=== PATIENT | female | born 1990 | race African-American/Black ===

== ENCOUNTER 2016-11-06 00:41 | Emergency (ER) | payer SELFPAY ==
--- NOTE | ~2016-11-06 | ER ---
PATIENT'S NAME: LOVELY VELASQUEZ [facility] AGE: 26 Y [address] ROOM: [place] [id number] LOCATION: ED ADMIT DATE: 11/06/2016 ER/Outpatient Report DISCHARGE DATE: 11/06/2016 FAMILY PHYSICIAN: Physician, Unknown ATTENDING PHYSICIAN: Michael Mcmahon HISTORY OF PRESENT ILLNESS: This is a 26-year-old female who presents today with a chief complaint of dental pain. She reports that it is mostly pain at her bottom front teeth and also on her right upper. She states that it has been bothering her for about 5 days now, but it was worse today. She has been taking Tylenol and ibuprofen without any improvement of pain. She reports some fever and a sore throat yesterday, but none today, no chills, has not been to a dentist in many, many years she reports. No difficulty swallowing. No neck tenderness. No altered mental status. No headache. No other complaints. PAST MEDICAL HISTORY: Includes dental caries and anxiety. PAST SURGICAL HISTORY: Tubes tied, LMP is September 2016. SOCIAL HISTORY: She smokes half-a-pack per day for the last 9 years. Also, reports occasional alcohol use and marijuana use. MEDICATIONS: Please see med list. ALLERGIES: PLEASE SEE MED LIST. REVIEW OF SYSTEMS: Reviewed by me and negative with the exception of those discussed in HPI. PHYSICAL EXAMINATION: VITAL SIGNS: She is 5 feet, 11 inches, weighs 105.2 kilos, blood pressure 121/63, heart rate 97, respiratory rate 16, temp is 98.6, and satting 98% on room air. GENERAL: The patient is nontoxic. She is not actively vomiting or retching. She is afebrile. Speaking in full sentences. No hoarse voice. HEENT: Pupils are equal and reactive to light. Extraocular movements are intact. She has no cervical lymphadenopathy. She has no pharyngeal erythema. The patient has a lot of dental caries and lots of fillings in it as well. Her 4 front teeth on the bottom row have dental caries that are PATIENT'S NAME: LORRAINE [facility]AR [facility] AGE: 26 Y [address] ROOM: [place] [address] LOCATION: ED ADMIT DATE: 11/06/2016 ER/Outpatient Report DISCHARGE DATE: 11/06/2016 FAMILY PHYSICIAN: Physician, Unknown ATTENDING PHYSICIAN: Michael Mcmahon obvious of the bottom of the teeth, but there is no gum swelling, no abscess. On the right upper looked around the canine area in the first premolar, there is some swelling above the teeth and I can also see dental caries there , it is not fluctuant, there is no drainage. She has no brawny edema of the neck. No elevation of the tongue. No C-spine tenderness. No nuchal rigidity. HEART: Regular rate and rhythm. Heart rate is about 85 beats per minute at this time. LUNGS: Her lung sounds are clear. ABDOMEN: Soft, nontender, nondistended. EXTREMITIES: She moves all extremities without any difficulty. NEURO: She is alert and oriented x4. She walked into the ER without any difficulty. EMERGENCY DEPARTMENT COURSE: Discussed with the patient she needs to see a dentist. I can help her with pain meds and gave her some penicillin VK for her possible tooth infection at this time, but the definitive treatment is to see a dentist as she has terrible dental caries. She understands this and will follow up appropriately. We will give her a script for some [place] and penicillin. She will follow up with a dentist. IMPRESSION: Dental caries. MICHAEL MCMAHON MD CACristina/modl /[id number] d: 11/06/16523 t: 11/06/16 181, OUTPATIENT REPORT
== END 2016-11-06 01:22 | disposition disaster alternative care site (69) ==
LOC: GMED 00:41
DX: K02.9 Dental caries, unspecified (principal); F41.9 Anxiety disorder, unspecified; F17.210 Nicotine dependence, cigarettes, uncomplicated; Z91.012 Allergy to eggs; Z98.890 Other specified postprocedural states